=== PATIENT | female | born 1945 | race American Indian/Alaskan Native ===

== ENCOUNTER 2016-08-03 10:48 | Day surgery (SDC) | payer MEDICARE, OTHER ==
[~2016-08-03 10:48] MED LIST: DIPRIVAN 10 MG/ML IV ONE
--- NOTE | 2016-08-03 11:28 | Short Stay Summary ---
Short Stay Documentation Date of service: 08/03/16 Narrative H&P: 70 year old presents for colonoscopy. Previous colonoscopy 10 years ago. History of breast cancer. - History Principal diagnosis: average risk colon screening H&P: obtained from office - Allergies and Medications Current Medications: Allergies No Known Allergies Allergy (Verified 06/23/13 12:35) Home Medications Medication Instructions Recorded Confirmed Last Taken Type Losartan/Hydrochlorothiazide 07/04/13 04/09/14 04/09/14 06:00 History [Losartan-Hctz 100-25 mg Tab] 1 Lovastatin [Lovastatin] 07/04/13 04/09/14 03/18/14 06:00 History 40mg Active Medications Sodium Chloride (Nacl 0.9% 1000 Ml) 1,000 mls @ 50 mls/hr IV DIRECT HIPOLITO - Hospital course Hospital course: Uneventful colonoscopy. - Disposition Condition at discharge: Good Disposition: DISCHARGED TO HOME OR SELFCARE - Discharge Diagnoses (1) Colon polyp Status: Acute (2) Internal hemorrhoids Status: Acute Short Stay Discharge Plan Activity: other (nop driving today) Diet: other (may resume previous diet) Additional Instructions: Patient to call for pathology result in 10 days. Follow up with: LOLA KRISHNAMURTHY MD [Primary Care Provider] - 7 Days
--- NOTE | 2016-08-03 11:29 | Anesthesia Consultation ---
Anesthesia Consult and Med Hx Date of service: 08/03/16 - Airway Anesthetic Teeth Evaluation: Good, Partials ROM Head & Neck: Inadequate Mental/Hyoid Distance: Adequate Mallampati Class: Class III Intubation Access Assessment: Probably Good - Pulmonary Exam CTA: Yes - Cardiac Exam Cardiac Exam: RRR - Pre-Operative Health Status ASA Pre-Surgery Classification: ASA3 Proposed Anesthetic Plan: MAC - Pulmonary Hx Smoking: No - Cardiovascular System Hx Hypertension: Yes - Central Nervous System Hx Neuromuscular Disorder: No Hx Psychiatric Problems: No - Gastrointestinal Hx Gastroesophageal Reflux Disease: No - Endocrine Hx Insulin Dependent Diabetes: Yes - Hematic Hx Anemia: No Hx Sickle Cell Disease: No - Other Systems Hx Alcohol Use: No Hx Substance Use: No Hx Cancer: Yes (breast cancer right side) - Additional Comments Anesthesia Medical History Comments: high cholesterol
[2016-08-03] MEDS ORDERED: NACL 0.9% 1000 ML 1,000 ML IV SCH (12:00)
--- NOTE | 2016-08-03 12:03 | Operative Report ---
Operative Report Operative Report: Date of procedure: 08/03/2016 Preprocedure diagnosis: Colon screening Post procedure diagnosis: Polyp and internal hemorrhoids Procedure name(s): Colonoscopy and cold snare polypectomy Surgeon: Emiliano Mackey MD Anesthesia: Monitored anesthesia care EBL: None Procedure: The indications, techniques, potential complications and alternatives , had been discussed in full detail prior to the date of the exam, and once again on the day of the exam. Questions were encouraged and answered, and consent was thereby obtained. The patient was placed in the left lateral decubitus position, and was medicated by anesthesia services. See the anesthesia records for details. The anal sphincter was digitally dilated. The digital exam was unremarkable. The tip of a [employer] video colonoscope was inserted through the anal sphincter and into the rectal vault. It was advanced proximally under continuous visualization of the lumen to the cecum without difficulty. The prep was good and landmarks were easily identified. No pathology was seen in the cecum. The appendiceal orifice and ileocecal valve appeared normal. Cannulation of the valve revealed normal terminal ileum. From the cecum, the instrument was slowly withdrawn with careful circumferential examination of the colonic mucosa. No pathology was found in the ascending colon, hepatic flexure, transverse colon, splenic flexure, descending colon or the sigmoid colon. A bland 5 mm hyperplastic-appearing sessile polyp was excised from the rectum with a cold snare. The lesion was retrieved. There was no significant bleeding. The remainder the rectum appeared normal from the forward view. Retroflexion revealed nonbleeding internal hemorrhoids. The instrument was fully withdrawn. The procedure was very well tolerated. Final diagnosis: 1. Sessile polyp, 5 mm, hyperplastic-appearing, rectum 2. Internal hemorrhoids 3. Otherwise normal colon and normal terminal ileum Colon screening information: Previous colonoscopy 10 years ago. Next colonoscopy depends upon today's histology. Emiliano Mackey M.D. Dictated 08/03/2016 at 12:20 PM
[2016-08-03] MEDS ORDERED: WATER FOR IRRIG STERILE IR ONE (12:14)
[2016-08-03 12:56] VITALS: BP 110/80
--- NOTE | 2016-08-03 13:07 | Post Anesthesia Evaluation ---
- Post Anesthesia Evaluation Patient Participated: Yes Airway Patent: Yes Stable Respiratory Function: Yes Nausea/Vomiting: No Temp > 96.8F: Yes Pain Manageable: Yes Adequeate Hydration: Yes Anesthesia Complications: No Block Receding Appropriately: Not Applicable Patient on Ventilator: No
== END 2016-08-03 10:49 | disposition home or self-care (01) ==
LOC: GIO 10:48
PROVIDERS: ATTEND Internal Medicine Gastroenterology
DX: Z12.11 Encounter for screening for malignant neoplasm of colon (principal); D12.8 Benign neoplasm of rectum; K64.8 Other hemorrhoids; I10 Essential (primary) hypertension; E11.9 Type 2 diabetes mellitus without complications; E78.00 Pure hypercholesterolemia, unspecified; Z85.3 Personal history of malignant neoplasm of breast; Z72.89 Other problems related to lifestyle; Z83.3 Family history of diabetes mellitus
CPT/HCPCS: 45385; 82962; 88305; J2704; J7030